=== PATIENT | male | born 1945 | race Caucasian/White ===

== ENCOUNTER 2017-04-02 10:21 | Emergency (ER) | payer MEDICARE, OTHER ==
[~2017-04-02 10:21] MED LIST: HYDROCHLOROTHIAZIDE
[2017-04-02] MEDS ORDERED: GLUCOPHAGE500 M3 PO (10:30)
[2017-04-02] MEDS ORDERED: LOPRESSOR100 M1 PO (10:30)
[2017-04-02] MEDS ORDERED: BISOPROLOL FUMA10 M1 PO (10:30)
[2017-04-02] MEDS ORDERED: ASPIRIN81 M1 PO (10:30)
[2017-04-02] MEDS ORDERED: COZAAR100 M1 PO (10:30)
[2017-04-02] MEDS ORDERED: SPIRONOLACTONE25 M2 PO (10:31)
[2017-04-02] MEDS ORDERED: LASIX20 M1 PO (10:31)
[2017-04-02] MEDS ORDERED: LIPITOR80 M1 PO (10:58)
[2017-04-02] MEDS ORDERED: DAILY MULTIPLE1 EAC2 PO (11:27)
[2017-04-02] MEDS ORDERED: [UNRECOGNIZED DRUG - CODE] PO (11:27)
[2017-04-02] MEDS ORDERED: VENTOLIN HFA18 G2 INH (11:29)
[2017-04-02] MEDS ORDERED: ROBAXIN-750750 M1 PO (12:06)
[2017-04-02] MEDS ORDERED: MEDROL4 M2 PO (12:06)
== END 2017-04-02 12:18 ==
LOC: EDMED 10:21
DX: M54.12 Radiculopathy, cervical region (principal); I10 Essential (primary) hypertension; E11.9 Type 2 diabetes mellitus without complications; Z79.82 Long term (current) use of aspirin; Z79.84 Long term (current) use of oral hypoglycemic drugs; Z79.899 Other long term (current) drug therapy
CPT/HCPCS: J1170; J2360